=== PATIENT | female | born 1950 | race Caucasian/White ===

== ENCOUNTER 2016-12-08 19:36 | Observation (INO) | payer MEDICARE ==
--- NOTE | ~2016-12-08 | CN ---
Consultation Report [facility] [address] [place]. [address] NAME: NELL CM : 49 STATUS : ADM Jne PAT#: [id number] AGE: 66 ADM/REG DATE : 12/08/16 MR#: [id number] REPORT SERV DATE: 12/09/16 DICTATED BY: CHRISTI CLARK DATE: 12/09/16 REPORT STATUS : Draft TRANSCRIBED BY: MODRicky DATE: 12/09/16 NEUROLOGY CONSULTATION DATE OF CONSULTATION: 12/09/2016 REASON FOR CONSULTATION: TIA. PCP: [facility]. HOSPITALIST: Dr. Adonay Bentley Jr. HISTORY OF PRESENT ILLNESS: The patient is a 66-year-old female, who had three episodes of "slurred speech, motor changes, and facial droop to the left". The first time this occurred was approximately three weeks ago, when she was out at the [employer] on [facility]. She thought, she had low blood sugar. She had taken her metformin and insulin and got some candy and popcorn, and ate it. She drove back home which was approximately an hour away. By the time she got home, she checked her blood sugar and it was 112. Her symptoms consequently had resolved within thirty minutes. She had a second episode approximately three days later, her symptoms were quite similar. She had just taken her metformin and insulin. The patient had left facial droops, some slurred speech, and numbness, and weakness in her left arm. She again thought this was low blood sugar. She ate something to raise her blood sugar and again her symptoms resolved in thirty minutes. The last episode occurred at 4 o'clock yesterday. She denied any headache, but she had the same symptomatology and decided to come in for further evaluation and treatments. When questioned extensively about her symptoms, the patient denied any visual changes. She denied any imbalance. She did mention again that she had facial droop. She had slurred speech and some numbness and weakness in her left arm. The patient did mention however that her youngest daughter back in 06/2016 from an overdose. She is having a hard time coping with this. She also recently quit her job and has had a lot of changes in her life. PAST MEDICAL HISTORY: Diabetes mellitus, hypertension, hyperlipidemia. PAST SURGICAL HISTORY: Tubal ligation, right mastoidectomy, and right total shoulder arthroplasty. HOME MEDICATIONS: Aspirin 81 mg daily, metformin 1000 mg b.i.d., "three blood pressure medications, insulin on a sliding scale, and a cholesterol pill". ALLERGIES: NONE. SOCIAL HISTORY: The patient is a . She has also been and she now lives with her fiancee. She has three children, one of whom recently . She used to work as Consultation Report [address] 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 She does not smoke, drink alcohol, or use illicits. FAMILY HISTORY: The patient's mother had a history of cancer. She from an [place]. Her father had a venous clot in the brain and also coronary artery disease. She has eight siblings. REVIEW OF SYSTEMS: For pertinent positives, please refer to HPI. PHYSICAL EXAMINATION: GENERAL: The patient is a 66-year-old female, who stands 5 foot 7 and weighs 146 pounds. VITAL SIGNS: She is afebrile. Heart rate 73, respiratory rate 20, O2 saturations on room air 95%, and blood pressure 140/65. NEURO: The patient is tearful. She is pleasant and cooperative, communicates appropriately. Speech is clear. Language is fluent. She does have a left facial droop. No tongue deviation. She has bilateral ptosis. Therefore, her vision is somewhat occluded in both upper outer quadrants. No sensory deficits reported in the facial area. She can move all extremities x4. There is no weakness in the upper extremities. No reported sensory deficits. Upper DTRs 2+ bilaterally. No pronator drift. No dysmetria, tremor, or asterixis. No ataxia with [id number]. Lower extremities, there is no weakness, comparing the right or the left. Strength is 5/5 bilaterally. Lower DTRs are 2+ bilaterally. Downgoing toes. No reported sensory deficits. LABORATORY DATA: CBC is normal. BMP normal. Chest x-ray, no acute changes. Hemoglobin A1c 7.5. Cholesterol values are within normal range. Urinalysis negative for UTI. CT of the brain, no acute changes. B12 level is 128 (low), TSH 3.78, NIH stroke scale is 1. ASSESSMENT/PLAN: 1. Probable transient ischemic attacks. At this point, I will place the patient on aspirin 325 mg daily and Lipitor 80 mg daily. We will do an MRI of the brain without gadolinium and MRA of the head and neck. She will also undergo an echocardiogram with bubble study. 2. Anxiety and depression. The patient is experiencing depression, she will be started on Lexapro 10 mg daily. 3. Grieving. The patient has had a recent loss of her daughter. We may arrange for her to go to counseling on an outpatient basis. 4. B12 deficiency. The patient will be started on B12 injections daily x5, then weekly x4, and then on a monthly basis. Thank you again for including us in consultation. We will continue to follow with you. ARIES/ZEINA Christi Shah Consultation Report [address] [address] NAME: NELL CM : 49 STATUS : ADM Jen PAT#: [id number] AGE: 66 ADM/REG DATE : 12/08/16 MR#: [id number] REPORT SERV DATE: 12/09/16 DICTATED BY: CHRISTI CLARK DATE: 12/09/16 REPORT STATUS : Draft TRANSCRIBED BY: ZEINA DATE: 12/09/16 JUSTICE Clark / [id number] CC: Adonay Bentley Jr, MD
--- NOTE | ~2016-12-08 | DS ---
Discharge Summary [facility] [address] [place]. [address] NAME: NELL CM : 49 STATUS : ADM Jen PAT#: [id number] AGE: 66 ADM/REG DATE : 12/08/16 MR#: [id number] REPORT SERV DATE: 12/10/16 DICTATED BY: CHRISTIAN OLIVAS DATE: 12/10/16 REPORT STATUS : Draft TRANSCRIBED BY: MODL DATE: 12/10/16 ADMISSION DATE: 12/08/2016 DISCHARGE DATE: 12/10/2016 DISCHARGE DIAGNOSES: 1. Possible transient ischemic attack. 2. Hypertension. 3. Diabetes mellitus type 2. 4. Hyperlipidemia. CONSULTATION: Neuro, Christi Fitzgerald, [facility]. IMAGIN. CT brain, December 08, 2016; impression, unremarkable noncontrast head CT. 2. Chest x-ray, December 08, 2016; impression, normal heart size. Lungs clear. 3. MRA of the head, December 09, 2016 unremarkable. 4. MRA of the neck, December 09, 2016; impression, unremarkable MRA of the carotid arteries. No significant atherosclerotic plaques or stenosis. 5. MRI of the brain, December 09, 2016; impression, no acute CVA or other acute intracranial pathology. Mild deep white matter chronic microvascular ischemic changes. LABORATORY DATA: WBCs 9.0, hemoglobin 13.0, hematocrit 38.4, and platelet count is 249. Sodium is 142, potassium is 3.8, chloride is 104, CO2 is 30, BUN is 11, creatinine is 0.62, glucose is 148, and calcium is 8.6. COURSE OF HOSPITAL STAY: Please refer to history and physical dictated by Dr. Alpesh Kemp on December 08, 2016 for complete admission details, as well as consultation note by Christi Fitzgerald on December 08, 2016. This patient is a 66-year-old female, who presented in [facility] Emergency Room with complaints of slurring of speech and motor changes, as well as possible facial drooping. The patient was admitted to the hospital for further testing and observation. Neurology was consulted to evaluate the patient. 1. TIA. Neurology were consulted. Imaging was obtained, which is noted above. The patient was started on aspirin and statin. Risk factors were discussed with the patient. Test results were reviewed with the patient. She will be discharged home to follow up with her primary care. 2. Hypertension. The patient's blood pressure was monitored. She will continue home medications and follow up with her primary care. 3. Diabetes mellitus type 2. The patient's blood sugar was monitored during her stay. She is diet controlled. At this time, blood sugars are stable. 4. Hyperlipidemia. The patient was continued on home medications. The patient is being discharged home in hemodynamically stable condition. She will follow up with her primary care within possibly next 24 hours and she had been advised to monitor blood sugar and blood pressure at home. Discharge Summary [address] [address] NAME: NELL CM : 49 STATUS : ADM Jen PAT#: [id number] AGE: 66 ADM/REG DATE : 12/08/16 MR#: [id number] REPORT SERV DATE: 12/10/16 DICTATED BY: CHRISTIAN OLIVAS DATE: 12/10/16 REPORT STATUS : Draft TRANSCRIBED BY: ZEINA DATE: 12/10/16 DISCHARGE MEDICATIONS: 1. Aspirin 325 mg one p.o. daily. 2. Lipitor 40 mg and 80 mg p.o. at bedtime. 3. Lopressor 25 mg one p.o. at bedtime. 4. Lopressor 50 mg one p.o. in the morning. 5. Glucophage 1000 mg p.o. twice daily. 6. NovoLog and Novolin R injections subcu at meals. 7. Cozaar 100 mg p.o. at bedtime. This discharge took less than 30 minutes. KIERRA/ZEINA Christian Olivas NP / [id number] CC: Samuel Aguilera MD
--- NOTE | ~2016-12-08 | HP ---
History And Physical [facility] [id number] [place]. [address] NAME: NELL CM : 49 STATUS : ADM Jen PAT#: [id number] AGE: 66 ADM/REG DATE : 12/08/16 MR#: [id number] REPORT SERV DATE: 12/09/16 DICTATED BY: MICHEAL KEMP DATE: 12/08/16 REPORT STATUS : Draft TRANSCRIBED BY: ZEINA DATE: 12/08/16 DATE OF ADMISSION: 12/08/2016 CHIEF COMPLAINT: Slurring. HISTORY OF PRESENT ILLNESS: The patient is a 66-year-old female with past medical history of hypertension; diabetes; insulin dependent, who presents after having a third episode of slurring speech, motor changes, and facial droop. The patient reports that first time symptoms happened were approximately three weeks ago when her and her fiance were leaving the [employer] in [place] [employer]. The patient thought that this was secondary to recently taking her metformin and her insulin, and felt this was symptomatic low blood sugar that she has had episodes of low blood sugars in the past, took sugar source in the form of candy and popcorn, and drove back home, which was an hour way. By the time she went back home and checked blood sugar, blood sugar was approximately 112 and symptoms had resolved within 30 minutes. Second episode was approximately two to three days ago. Symptoms were at home. Similarly, the patient had just taken her metformin and insulin. The patient had left face and speech changes along with increased numbness in left hand, which was more pronounced than in the first episode three weeks prior to this. Additionally, she attributed this to low blood sugar, although there are no documented lows. Blood sugars were in the 100s again and her symptoms resolved within 30 minutes. Today, the patient had a third episode with slurring of speech to the point where she was incomprehensible to fiance, who is at bedside, did not note that blood sugar was low at this time, and came in for unclear reasoning for this. The patient reports that she did take her insulin and metformin, but she was unclear why this similar episode was happening. The patient denies any pain or discomfort. Symptoms were moderate severity, but are resolving. No radiating symptoms. Today's episode occurred approximately 4 o'clock today. No headache, nausea, vomiting, diarrhea, fever, or chills reported. Nothing makes symptoms worse. Nothing relieves symptoms. Although symptoms of dysphagia have resolved, the patient does have mild facial droop that is still persistent. The patient is noted to report that she is currently under workup for positive fecal occult blood test with GI as an outpatient and has had prior outpatient colonoscopy. REVIEW OF SYSTEMS: A 10-point review of systems negative for that noted in the HPI including: GENERAL: No fevers or chills. EYES: No eye pain or visual changes. ENT: No sore throat or congestion. NEURO: Positive speech changes and numbness, but no headache or confusion. SKIN: No rashes or bruising. No recent tick bites. RESPIRATORY: No shortness of breath, dyspnea on exertion, or cough. CV: No chest pain or palpitations. GI: No nausea or vomiting. : No dysuria or hematuria. MUSCULOSKELETAL: No myalgias or arthralgias. ENDO: No fatigue or polyuria, but reports possibly having low blood sugars occasionally. HEME: No bleeding or bruising, but was fecal occult blood test positive in outpatient History And Physical [address] [address] NAME: NELL CM : 49 STATUS : ADM Jen PAT#: [id number] AGE: 66 ADM/REG DATE : 12/08/16 MR#: [id number] REPORT SERV DATE: 12/09/16 DICTATED BY: MICHEAL KEMP DATE: 12/08/16 REPORT STATUS : Draft TRANSCRIBED BY: ZEINA DATE: 12/08/16 screening test x2. IMMUNOLOGIC: No rhinorrhea. PSYCH: No anxiety or confusion at this time. PAST MEDICAL HISTORY: Insulin-dependent diabetes, hypertension, and hyperlipidemia. SURGICAL HISTORY: Tubal and right shoulder surgery as well as right ear surgery. SOCIAL HISTORY: No smoking, alcohol, or illicits. Lives with [facility]. Was previously a cyber security analyst. Did have exposure to black mold. FAMILY HISTORY: Sister, brother, and son have diabetes. Mother and brother had heart disease. Mother at 84, brother in the 60s with liver cancer in brother secondary to hepatitis. ALLERGIES: NO KNOWN DRUG ALLERGIES. HOME MEDICATIONS: Aspirin and metformin. Unclear blood pressure medications, but does know one is metoprolol and did have decrease of nighttime dose secondary to working at night and possible cause for fatigue. Cholesterol medication and insulin. EKG: Normal sinus rhythm, rate 75, QTc 422. PHYSICAL EXAMINATION: VITAL SIGNS: The patient's blood pressure initially was reported 205/87, currently 133/67; temperature 98.6; pulse 79, respirations 18, O2 saturations 99% on room air. GENERAL: In no acute distress. Calm, pleasant, well developed, well nourished. EYES: No scleral icterus. EOMI. No nystagmus. ENT: Nares patent. Tongue midline. Moist mucous membranes. Does have left-sided mild facial droop. RESPIRATORY: Clear to auscultation. No wheezes, rales, or rhonchi. CV: Regular rate. No rubs or gallops. No pedal edema. Gi: Soft, nontender, nondistended. Bowel sounds positive. : Deferred. MUSCULOSKELETAL: Moves all extremities x4. Symmetrical strength bilaterally upper and lower extremities. SKIN: Warm and dry. LYMPH: No cervical or supraclavicular lymphadenopathy. HEME: No bleeding or bruising. NEURO: Alert and oriented. Does have left-sided mild droop, but symmetrical smile. Tongue midline. Normal speech umberto at this time. 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 No nystagmus or beating nystagmus. No dizziness. Symmetrical wrinkled brow. Symmetrical strength in upper and lower extremities bilaterally. Gait not tested. PSYCH: Appropriate mood and affect. LABORATORY DATA AND IMAGING: Has blood sugar on arrival 140. BMP grossly within normal limits. Magnesium 1.7. BUN and creatinine 9 and 0.68. Troponin negative. Magnesium 1.7. History And Physical [address] [address] NAME: NELL CM : 49 STATUS : ADM Jen PAT#: [id number] AGE: 66 ADM/REG DATE : 12/08/16 MR#: [id number] REPORT SERV DATE: 12/09/16 DICTATED BY: MICHEAL KEMP DATE: 12/08/16 REPORT STATUS : Draft TRANSCRIBED BY: MODRicky DATE: 12/08/16 CBC; WBC count 10.7, H and H 12.8 and 38.2, platelets 274. INR 1.1. Brain without contrast, unremarkable without any acute pathology. ASSESSMENT AND PLAN: 1. Transient ischemic attack. 2. Hypertension. 3. Diabetes type 2. 4. Positive fecal occult blood test. 5. Hyperlipidemia. PLAN: 1. For TIA, three repeat episodes over the last three weeks, questionable hypoglycemia versus hypertension. The patient does have clinical signs of slurring with left-sided droop, resolution within 30 minutes. Does have history of low blood sugars. We will continue order set for TIA workup with MRI. CT currently negative. Blood sugar was initially reported 205 is at within acceptable range at this time after labetalol given in the emergency room. The patient does take beta-albino at home. This could be masking symptoms. We will need to monitor on telemetry. Continue workup with echocardiogram, MRI, and MRA for carotid disease. No current bruits on physical exam and does have resolution of symptoms. We will also have diabetic education for reinforcement of insulin and confirmation of dosing. 2. Hypertension, improved. We will need to confirm home medications. The patient is slightly unclear of medication doses. The patient was initially systolic hypertensive, but has already showed improvement. We will monitor clinically on telemetry. 3. Next diabetes type 2 with reported lows as low as in the 20s in the past. We will check A1c. Diabetic education. Is on beta-albino, could possibly be masking symptoms. We will need to do medication readjustment evaluation, confirm home dose of medications. 4. Positive fecal occult blood test. Has outpatient followup with GI. Has had prior colonoscopy. 5. Hyperlipidemia. Statin. All questions answered with the patient and fiance at bedside. DISPOSITION: Pending workup as above. DDN/MODL Micheal Kemp MD / [id number] CC: Adonay Bentley Jr, MD
[~2016-12-08 19:36] MED LIST: ASAB PO; DIABETA5 PO; GLUCOPHAGE1000 MG PO; GLYBURIDE; GLYNASE1.5 PO; METOPROLOL; MEVACOR PO; PRIN5 PO; PROMETHAZI6.25 MG/5 OR; TOPXL50 PO
[2016-12-08 19:59] LABS: BASOPHILS 0.4 %; BASOPHILS ABSOLUTE 0.04 10/3/uL (0.0-0.16); EOSINOPHILS 2.6 %; EOSINOPHILS ABSOLUTE 0.28 10/3/uL (0.0-0.53); HEMATOCRIT 38.2 % (36.0-48.0); HEMOGLOBIN 12.8 g/dL (12.0-16.0); IMMATURE GRANULOCYTES 0.2 %; IMMATURE GRANULOCYTES ABSOLUTE 0.02 10/3/uL (0.0-0.11); LYMPHOCYTES 26.4 %; LYMPHOCYTES ABSOLUTE 2.83 10/3/uL (0.67-4.30); MEAN CORPUS HGB CONC 33.5 g/dL (32.0-36.0); MEAN CORPUSCULAR HEMOGLOB 29.3 pg (26.0-34.0); MEAN CORPUSCULAR VOLUME 87.4 fL (80-100); MEAN PLATELET VOLUME 9.5 fL (9.2-13.0); MONOCYTES 8.5 %; MONOCYTES ABSOLUTE 0.91 10/3/uL (0.21-1.20); NEUTROPHILS 61.9 %; NEUTROPHILS ABSOLUTE 6.63 10/3/uL (2.02-8.40); PLATELET COUNT 274 10/3/uL (150-400); RBC DISTRIBUTION WIDTH 12.1 % (12.0-16.0); RED CELL COUNT 4.37 10/6/uL (4.0-5.6); WHITE BLOOD CELLS 10.7 10/3/uL (4.5-10.5)
[2016-12-08 20:00] LABS: MANUAL DIFF NO %
[2016-12-08 20:06] LABS: INTERNATIONAL NORMAL RATI 1.1 UNITS (-); PROTIME (NOT ORD) 14.2 SEC (12.0-14.5)
[2016-12-08 20:07] LABS: PARTIAL THROMBO TIME 33.1 SEC (22.5-37.2)
[2016-12-08 20:15] LABS: BUN (BLOOD UREA NITROGEN) 9 MG/DL (6-23); CALCIUM, SERUM 8.9 MG/DL (8.5-10.4); CHEST PAIN PROFILE TAT 0 Hrs 20 Mins; CHLORIDE, SERUM 104 MMOL/L (96-112); CO2 (CARBON DIOXIDE) 28 MMOL/L (24-34); CREATININE 0.68 MG/DL (0.55-1.02); GFR AFRICAN AMERICAN 105 ML/MIN (>=60); GFR NON AFRICAN AMERICAN 91 ML/MIN (>=60); GLUCOSE, SERUM 105 MG/DL (60-99); POTASSIUM, SERUM 3.8 MMOL/L (3.5-5.3); SODIUM, SERUM 142 MMOL/L (135-148); TROPONIN I <0.02 NG/ML (<0.05)
[2016-12-08] MEDS ORDERED: GLUCOPHAGE1000 MG PO (21:48)
[2016-12-08] MEDS ORDERED: BLOOD PRESSURE RX #1 PO ×2 (21:50→21:51)
[2016-12-08] MEDS ORDERED: BLOOD PRESSURE RX #2 PO (21:51)
[2016-12-08] MEDS ORDERED: INSNOVR SC (21:54)
[2016-12-08] MEDS ORDERED: CHOLESTEROL PO (21:56)
[2016-12-08] MEDS ORDERED: ASAB PO (21:56)
[2016-12-09 04:33] LABS: ASCORBIC ACID (UR NOT ORDER) NEG (NEG); BILIRUBIN, URINE NEGATIVE (NEG); KETONE, URINE TRACE MG/DL (NEG); LEUKOCYTE ESTERASE(NOT OR NEG (NEG); WBC (NOT ORDERED) (RFLEX) < 1 (0-5)
[2016-12-09 05:22] LABS: CHOL/HDL RATIO(NOT ORDER) 3.5 (0-5); CHOLESTEROL 135 MG/DL (< 200); CPK (IF ELEVATED MB BANDS) 63 U/L (0-200); HDL CHOLESTEROL 39 MG/DL (> 49); LDL CHOLESTEROL 70 MG/DL (< 130); NON-HDL CHOLESTEROL 96 MG/DL (< 160); TRIGLYCERIDE 132 MG/DL (< 150); TROPONIN I <0.02 NG/ML (<0.05)
[2016-12-09 05:23] LABS: FOLATE 14.5 NG/ML (>5.2)
[2016-12-09 12:39] LABS: CPK 78 U/L (0-200); TROPONIN I <0.02 NG/ML (<0.05)
[2016-12-09 12:41] LABS: CK-MB 0.7 NG/ML
[2016-12-09] MEDS ORDERED: LOP25 PO (13:06)
[2016-12-09] MEDS ORDERED: COZAAR100 MG PO (13:06)
[2016-12-09] MEDS ORDERED: LOP50 PO (13:06)
[2016-12-09] MEDS ORDERED: MEVACOR PO (13:07)
[2016-12-10 04:18] LABS: BASOPHILS 0.2 %; BASOPHILS ABSOLUTE 0.02 10/3/uL (0.0-0.16); EOSINOPHILS ABSOLUTE 0.27 10/3/uL (0.0-0.53); HEMATOCRIT 38.4 % (36.0-48.0); IMMATURE GRANULOCYTES 0.2 %; IMMATURE GRANULOCYTES ABSOLUTE 0.02 10/3/uL (0.0-0.11); LYMPHOCYTES 35.1 %; LYMPHOCYTES ABSOLUTE 3.15 10/3/uL (0.67-4.30); MEAN CORPUS HGB CONC 33.9 g/dL (32.0-36.0); MEAN CORPUSCULAR HEMOGLOB 29.3 pg (26.0-34.0); MEAN CORPUSCULAR VOLUME 86.7 fL (80-100); MEAN PLATELET VOLUME 9.8 fL (9.2-13.0); MONOCYTES 10.5 %; MONOCYTES ABSOLUTE 0.94 10/3/uL (0.21-1.20); NEUTROPHILS ABSOLUTE 4.57 10/3/uL (2.02-8.40); PLATELET COUNT 249 10/3/uL (150-400); RBC DISTRIBUTION WIDTH 11.8 % (12.0-16.0); RED CELL COUNT 4.43 10/6/uL (4.0-5.6)
[2016-12-10 04:20] LABS: MANUAL DIFF NO %
[2016-12-10 04:45] LABS: BUN (BLOOD UREA NITROGEN) 11 MG/DL (6-23); CALCIUM, SERUM 8.6 MG/DL (8.5-10.4); CHLORIDE, SERUM 104 MMOL/L (96-112); CO2 (CARBON DIOXIDE) 30 MMOL/L (24-34); CREATININE 0.62 MG/DL (0.55-1.02); GFR AFRICAN AMERICAN 108 ML/MIN (>=60); GFR NON AFRICAN AMERICAN 93 ML/MIN (>=60); POTASSIUM, SERUM 3.8 MMOL/L (3.5-5.3); SODIUM, SERUM 142 MMOL/L (135-148)
[2016-12-10 04:46] LABS: GLUCOSE, SERUM 148 MG/DL (60-99)
[2016-12-10] MEDS ORDERED: ASA5GR PO (16:39)
[2016-12-10] MEDS ORDERED: LEXAPRO10 PO (16:40)
[2016-12-10] MEDS ORDERED: LIPITOR40 PO (16:41)
== END 2016-12-10 17:22 | disposition home or self-care (01) ==
LOC: ER 19:36 → CDU1 23:17
PROVIDERS: Internal Medicine; Specialist
DX: G45.9 Transient cerebral ischemic attack, unspecified (principal); E11.9 Type 2 diabetes mellitus without complications; I10 Essential (primary) hypertension; E78.5 Hyperlipidemia, unspecified; F32.9 Major depressive disorder, single episode, unspecified; F41.9 Anxiety disorder, unspecified; Z79.4 Long term (current) use of insulin; Z98.51 Tubal ligation status; Z98.890 Other specified postprocedural states; Z79.82 Long term (current) use of aspirin; Z79.899 Other long term (current) drug therapy; E53.8 Deficiency of other specified B group vitamins
CPT/HCPCS: 70450; 70544; 70548; 70551; 71010; 80048; 80061; 81001; 82550; 82553; 82607; 82746; 82962; 83036; 83735; 84443; 84484; 85025; 85610; 85730; 92523-GN; 93005; 93306; 96372; 96374; 96376; 97161-GP; 99285; A9270-GY; A9577; G0378; G8978-CH-GP; G8979-CH-GP; G8980-CH-GP; G9162-CI-GN; G9163-CI-GN; G9164-CI-GN